=== PATIENT | female | born 1980 | race Caucasian/White ===

== ENCOUNTER 2019-10-21 08:47 | Emergency (ER) | payer OTHER ==
[~2019-10-21] VITALS: Ht 172.7 cm; Wt 136.5 kg
[2019-10-21 08:48] VITALS: BP 126/68
[2019-10-21] MEDS ORDERED: NAPR-837 PO (10:22)
--- NOTE | 2019-10-21 10:25 | REP ---
Left knee four views: There is no fracture or dislocation. There is no hemarthrosis. Mineralization is normal. There is mild tricompartment osteoarthritis. Electronically Signed by David Chacon MD 10/21/2019 10:17 A
== END 2019-10-21 10:35 | disposition home or self-care (01) ==
LOC: M ED 08:47
DX: S83.92XA Sprain of unspecified site of left knee, initial encounter (principal); W18.40XA Slipping, tripping and stumbling without falling, unspecified, initial encounter; Y92.099 Unspecified place in other non-institutional residence as the place of occurrence of the external cause; Y93.9 Activity, unspecified; Y99.9 Unspecified external cause status; F17.200 Nicotine dependence, unspecified, uncomplicated; Z88.5 Allergy status to narcotic agent; Z88.1 Allergy status to other antibiotic agents; Z88.8 Allergy status to other drugs, medicaments and biological substances

== ENCOUNTER 2019-12-23 09:24 | Emergency (ER) | payer OTHER ==
[~2019-12-23] VITALS: Ht 172.7 cm; Wt 125.9 kg
[~2019-12-23 09:24] MED LIST: NAPR-837 PO
[2019-12-23] MEDS ORDERED: KETOROLAC 30 MG/ML VIAL (J1885) IV ONE (09:45)
[2019-12-23 10:46] LABS: BASO % 0.4 % (0.0-1.0); EOS # 0.4 10^3/uL (0.0-0.5); EOS % 6.1 % (0.0-3.0); HEMATOCRIT 42.5 % (36.0-47.0); HEMOGLOBIN 13.8 g/dl (12.0-15.5); LYMPH # 1.4 10^3/uL (1.5-5.0); LYMPH % 20.7 % (24.0-44.0); MEAN CORPUSCULAR HEMOGLOBIN 29.3 pg (27.0-33.0); MEAN CORPUSCULAR HGB CONC 32.5 g/dl (32.0-36.5); MEAN CORPUSCULAR VOLUME 90.2 fl (80.0-96.0); MONO # 0.5 10^3/uL (0.0-0.8); MONO % 6.9 % (0.0-5.0); NEUTROPHILS # 4.4 10^3/uL (1.5-8.5); NEUTROPHILS % 65.6 % (36.0-66.0); PLATELET COUNT, AUTOMATED 215 10^3/uL (150-450); RED BLOOD COUNT 4.71 10^6/uL (4.00-5.40); WHITE BLOOD COUNT 6.7 10^3/uL (4.0-10.0)
[2019-12-23 11:18] LABS: ALBUMIN 3.4 GM/DL (3.2-5.2); BILIRUBIN,DIRECT 0.1 MG/DL (0.0-0.2); BILIRUBIN,TOTAL 0.5 MG/DL (0.2-1.0); TOTAL PROTEIN 7.2 GM/DL (6.4-8.2)
--- NOTE | 2019-12-23 11:21 | REP ---
REASON: Left-sided pain. History of tubal ligation and positive home test. Transvesical and transvaginal imaging was obtained. The uterus measures 8.9 x 5.5 x 8.6 cm. The endometrial echo complex measures 1.5 cm in thickness and is heterogenous with a somewhat demarcated measurable mixed echo structure within the endometrial cavity. There is a small amount of fluid seen in the endometrial cavity. Doppler of this structure shows no evidence of cardiac activity, however. There is no free fluid in the cul-de-sac. The right ovary measures 4.6 x 2.9 x 2 cm. Inferior to the right ovary, possibly exophytic to it, there is 2.2 x 2.1 x 1.4 cm sized complex area poorly demarcated by this exam. Right ovarian RI is 0.50. The left ovary measures 3.5 x 2.5 x 3.1 cm with an RI of 0.37. The left ovary is unremarkable. IMPRESSION: 1. There is no sonographic evidence of a living intrauterine gestation. Finding in the endometrial cavity, as described above, is of uncertain etiology and needs to be correlated clinically with close followup. 2. There is a complex structure seemingly inferior to the right ovary but poorly demarcated by this exam. There is no definite evidence of an ectopic , however, it cannot be ruled out by this exam. Clinical correlation and close followup is recommended. Electronically Signed by Seamus Szymanski DO 12/23/2019 11:53 A
[2019-12-23] MEDS ORDERED: ONDA4TAB6 PO (11:39)
[2019-12-23] MEDS ORDERED: KETO10TAB PO (11:39)
[2019-12-23 11:47] VITALS: BP 131/74
== END 2019-12-23 11:49 | disposition home or self-care (01) ==
LOC: M ED 09:24
DX: N93.8 Other specified abnormal uterine and vaginal bleeding (principal); R42 Dizziness and giddiness; Z32.02 Encounter for pregnancy test, result negative; E03.9 Hypothyroidism, unspecified; E66.9 Obesity, unspecified; Z87.59 Personal history of other complications of pregnancy, childbirth and the puerperium; Z98.51 Tubal ligation status; Z98.84 Bariatric surgery status; F17.200 Nicotine dependence, unspecified, uncomplicated; F12.10 Cannabis abuse, uncomplicated; Z88.1 Allergy status to other antibiotic agents; Z88.5 Allergy status to narcotic agent; Z88.8 Allergy status to other drugs, medicaments and biological substances
CPT/HCPCS: 76801; 76817; 80047; 80076; 84702; 85025; 86850; 86900; 86901; 93976; 96374; 99284; J1885

== ENCOUNTER 2019-12-25 10:30 | Emergency (ER) | payer OTHER ==
[~2019-12-25] VITALS: Ht 172.7 cm; Wt 127.8 kg
[~2019-12-25 10:30] MED LIST changes: +KETO10TAB PO; +ONDA4TAB6 PO
[2019-12-25 11:22] LABS: BASO % 0.4 % (0.0-1.0); EOS # 0.4 10^3/uL (0.0-0.5); EOS % 5.9 % (0.0-3.0); HEMOGLOBIN 13.5 g/dl (12.0-15.5); LYMPH # 1.5 10^3/uL (1.5-5.0); LYMPH % 20.9 % (24.0-44.0); MEAN CORPUSCULAR HEMOGLOBIN 29.2 pg (27.0-33.0); MEAN CORPUSCULAR HGB CONC 32.1 g/dl (32.0-36.5); MEAN CORPUSCULAR VOLUME 90.7 fl (80.0-96.0); MONO # 0.3 10^3/uL (0.0-0.8); MONO % 4.5 % (0.0-5.0); NEUTROPHILS # 4.7 10^3/uL (1.5-8.5); PLATELET COUNT, AUTOMATED 208 10^3/uL (150-450); RED BLOOD COUNT 4.63 10^6/uL (4.00-5.40)
[2019-12-25 11:37] LABS: BLOOD UREA NITROGEN 11 MG/DL (7-18); CALCIUM LEVEL 8.9 MG/DL (8.5-10.1); CARBON DIOXIDE LEVEL 27 MEQ/L (21-32); CHLORIDE LEVEL 112 MEQ/L (98-107); CREATININE FOR GFR 0.76 MG/DL (0.55-1.30); GLOMERULAR FILTRATION RATE > 60.0 (>58); GLUCOSE, FASTING 84 MG/DL (70-100); SODIUM LEVEL 141 MEQ/L (136-145)
[2019-12-25 11:43] LABS: APPEARANCE, URINE HAZY (CLEAR); BACTERIA, URINE AUTO NEGATIVE (NEGATIVE); BILIRUBIN, URINE AUTO NEGATIVE (NEGATIVE); BLOOD, URINE BLOOD 3+ (NEGATIVE); COLOR, URINE YELLOW (YELLOW); GLUCOSE, URINE (UA) AUTO NEGATIVE (NEGATIVE); KETONE, URINE AUTO NEGATIVE (NEGATIVE); LEUKOCYTE ESTERASE, URINE AUTO TRACE (NEGATIVE); MUCUS, URINE SMALL (NEGATIVE); NITRITE, URINE AUTO NEGATIVE (NEGATIVE); PROTEIN, URINE AUTO NEGATIVE (NEGATIVE); RBC, URINE AUTO 4 /HPF (0-3); SPECIFIC GRAVITY URINE AUTO 1.026 (1.002-1.035); SQUAMOUS EPITHELIAL CELL UR AU 8 /HPF (0-6); WBC, URINE AUTO 5 /HPF (0-3)
[2019-12-25 12:07] VITALS: BP 118/56
== END 2019-12-25 12:18 | disposition home or self-care (01) ==
LOC: M ED 10:30
DX: N93.8 Other specified abnormal uterine and vaginal bleeding (principal); E03.9 Hypothyroidism, unspecified; Z98.84 Bariatric surgery status; F17.200 Nicotine dependence, unspecified, uncomplicated; Z88.6 Allergy status to analgesic agent; Z88.1 Allergy status to other antibiotic agents; Z88.5 Allergy status to narcotic agent; Z88.8 Allergy status to other drugs, medicaments and biological substances

== ENCOUNTER 2020-09-01 12:15 | Emergency (ER) | payer OTHER ==
[~2020-09-01] VITALS: Ht 172.7 cm; Wt 115.8 kg
[2020-09-01 12:16] VITALS: BP 130/71
[2020-09-01] MEDS ORDERED: Xyzal PO (12:45)
[2020-09-01] MEDS ORDERED: ALBU8.5H (12:45)
== END 2020-09-01 13:15 | disposition left against medical advice (07) ==
LOC: M ED 12:15
DX: Z53.21 Procedure and treatment not carried out due to patient leaving prior to being seen by health care provider (principal)

== ENCOUNTER 2020-09-01 18:39 | Emergency (ER) | payer OTHER ==
[~2020-09-01] VITALS: Ht 172.7 cm; Wt 115.2 kg
[~2020-09-01 18:39] MED LIST changes: +ALBU8.5H; +Xyzal PO
[2020-09-01 19:38] LABS: BASO % 0.2 % (0.0-1.0); EOS # 0.3 10^3/uL (0.0-0.5); EOS % 3.5 % (0.0-3.0); HEMATOCRIT 34.8 % (36.0-47.0); HEMOGLOBIN 10.5 g/dl (12.0-15.5); LYMPH % 23.8 % (24.0-44.0); MEAN CORPUSCULAR HEMOGLOBIN 25.4 pg (27.0-33.0); MEAN CORPUSCULAR HGB CONC 30.2 g/dl (32.0-36.5); MEAN CORPUSCULAR VOLUME 84.1 fl (80.0-96.0); MONO # 0.4 10^3/uL (0.0-0.8); MONO % 4.3 % (0.0-5.0); NEUTROPHILS # 5.8 10^3/uL (1.5-8.5); NEUTROPHILS % 67.8 % (36.0-66.0); PLATELET COUNT, AUTOMATED 217 10^3/uL (150-450); RED BLOOD COUNT 4.14 10^6/uL (4.00-5.40); WHITE BLOOD COUNT 8.6 10^3/uL (4.0-10.0)
[2020-09-01 20:11] LABS: HCG, SERUM QUALITATIVE NEGATIVE (NEGATIVE)
[2020-09-01 20:17] LABS: ALBUMIN 3.1 GM/DL (3.2-5.2); ALT/SGPT 9 U/L (12-78); BILIRUBIN,DIRECT < 0.1 MG/DL (0.0-0.2); BILIRUBIN,TOTAL 0.2 MG/DL (0.2-1.0); BLOOD UREA NITROGEN 10 MG/DL (7-18); CALCIUM LEVEL 8.4 MG/DL (8.5-10.1); CARBON DIOXIDE LEVEL 25 MEQ/L (21-32); CHLORIDE LEVEL 110 MEQ/L (98-107); CK-MB VALUE MASS < 1.0 NG/ML (<3.6); CPK CREATINE PHOSPHOKINASE 61 U/L (26-192); CREATININE FOR GFR 0.73 MG/DL (0.55-1.30); GLOMERULAR FILTRATION RATE > 60.0 (>58); GLUCOSE, FASTING 83 MG/DL (70-100); LIPASE 180 U/L (73-393); MB/CK RELATIVE INDEX 1.64 (< OR =4); POTASSIUM SERUM 4.1 MEQ/L (3.5-5.1); SODIUM LEVEL 140 MEQ/L (136-145); TOTAL PROTEIN 6.2 GM/DL (6.4-8.2); TROPONIN I < 0.02 NG/ML (< 0.10)
--- NOTE | 2020-09-01 20:45 | REPVR ---
PROCEDURE INFORMATION: Exam: XR Complete Acute Abdomen Series Exam date and time: 09/01/2020 7:13 PM Age: 40 years old Clinical indication: Other: R/O free air; Additional info: Upper abdominal pain; R/O free air TECHNIQUE: Imaging protocol: XR complete acute abdomen series, including 2 or more views of the abdomen and a single view chest. COMPARISON: No relevant prior studies available. FINDINGS: Lungs: Normal. No consolidation. Pleural space: Normal. No pneumothorax. Heart/Mediastinum: Normal. No cardiomegaly. Gastrointestinal tract: Mildly prominent small bowel loops in the upper abdomen to the left of midline may indicate a localized ileus depending upon clinical evaluation. Intraperitoneal space: Normal. No free air. Bones/joints: Normal. No acute fracture. Soft tissues: Normal. IMPRESSION: 1. Mildly prominent small bowel loops in the upper abdomen to the left of midline may indicate a localized ileus depending upon clinical evaluation. 2. No free air demonstrated. Electronically signed by: Gus Trujillo On 09/01/2020 20:45:07 PM
--- NOTE | 2020-09-01 21:03 | ECGEPIP ---
[facility] - ED Test Date: 2020-09-01 Pat Name: COLBY HERNANDEZ Department: Room: - Gender: Female Translational Specialist: ISAEL : 1980 Requested By: NADIA SANCHEZ Order Number: [id number] Reading MD: Amita Montano Measurements Intervals [place] Rate: 50 P: 77 MT: 131 QRS: 29 QRSD: 98 T: 28 QT: 408 QTc: 373 Interpretive Statements SINUS BRADYCARDIA WITH SINUS ARRHYTHMIA NO PRIOR Electronically Signed on 09-01-2020 21:03:10 EST by Amita Montano
[2020-09-01] MEDS ORDERED: ISOVUE-370 76% 100ML VIAL As Ordered ONE (21:10)
[2020-09-01] MEDS ORDERED: GI COCKTAIL 50ML BTL(HYOSCYAMINE/MAALOX/LIDOCAINE VISCOUS)(1:3:1) PO ONE (21:15)
--- NOTE | 2020-09-01 21:58 | REPVR ---
PROCEDURE INFORMATION: Exam: CT Abdomen And Pelvis With Contrast Exam date and time: 09/01/2020 9:27 PM Age: 40 years old Clinical indication: Abdominal pain; Generalized; Additional info: Upper abdominal pain; R/O obstruction TECHNIQUE: Imaging protocol: Computed tomography of the abdomen and pelvis with intravenous contrast. Radiation optimization: All CT scans at this facility use at least one of these dose optimization techniques: automated exposure control; mA and/or kV adjustment per patient size (includes targeted exams where dose is matched to clinical indication); or iterative reconstruction. Contrast material: ISOVUE 370; Contrast volume: 100 ml; Contrast route: INTRAVENOUS (IV); COMPARISON: CR Abdomen,Flat Upright,PA CHEST 09/01/2020 8:17 PM FINDINGS: Liver: A normal appendix is seen adjacent to the liver and gallbladder fundus. Gallbladder and bile ducts: Normal. No calcified stones. No ductal dilation. Pancreas: Normal. No ductal dilation. Spleen: There is a large cyst the caudal tip of the spleen measuring 4.4 x 4.5 x 4.8 cm with a Hounsfield measurement of 9. The spleen measures 14.1 cm. Adrenal glands: Left adrenal nodule measuring 2.8 x 2.8 x 2.5 cm with a Hounsfield measurement of 50. Kidneys and ureters: Normal. No hydronephrosis. 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 Inverted cecum which is noted in the right upper quadrant. No diverticulosis or diverticulitis. No small bowel dilatation. Appendix: No evidence of appendicitis. Intraperitoneal space: Minimal free air within the abdomen noted within the corin hepatis and along the falciform ligament and anteriorly across the upper abdomen. Minimal free fluid in the abdomen and pelvis. A Alexey-en-Y is noted in the anterior left upper quadrant. Vasculature: There is minimal atherosclerotic calcification of the abdominal aorta. Lymph nodes: Unremarkable. No enlarged lymph nodes. Urinary bladder: Unremarkable as visualized. Reproductive: Tampon in position. Bones/joints: Unremarkable. No acute fracture. Soft tissues: Unremarkable. IMPRESSION: 1. Minimal free air and minimal free fluid consistent with perforated viscus of uncertain site. 2. There has been gastric bypass with left upper quadrant Alexey-en-Y. 3. Borderline splenomegaly with splenic cyst measuring up to 4.8 cm. 4. Left adrenal nodule measuring 2.8 x 2.8 x 2.[address] (Shukri Howard, ACR White Paper, 2017) 5. No evidence of bowel obstruction. Electronically signed by: Tyrel Jamil On 09/01/2020 21:58:05 PM
[2020-09-01 22:44] VITALS: BP 120/60
[2020-09-01] MEDS ORDERED: PANTOPRAZOLE 40MG VIAL (C9113 PER 1) IV ONE (22:45)
[2020-09-01] MEDS ORDERED: NS 1,000 ML IV ONE ×2 (23:45)
[2020-09-01] MEDS ORDERED: FLUCONAZOLE 400 MG in IV 1 EA IV ONE (23:45)
[2020-09-01] MEDS ORDERED: LR 1,000 ML IV ONE ×2 (23:45)
[2020-09-01] MEDS ORDERED: PIPERACILLIN/TAZOBACTAM SOD 3.375 GM in D5W MINI-BAG PLUS 50 ML IV ONE (23:45)
[2020-09-01] MEDS ORDERED: MULTIVITAMIN -ADULT INJECTION 10 ML, THIAMINE INJection 100 MG, FOLIC ACID 1 MG in NS 1... IV ONE (23:45)
== END 2020-09-02 01:53 | disposition short-term general hospital (02) ==
LOC: M ED 18:39
DX: R14.0 Abdominal distension (gaseous) (principal); R00.1 Bradycardia, unspecified; E03.9 Hypothyroidism, unspecified; E06.9 Thyroiditis, unspecified; Z98.84 Bariatric surgery status; F17.200 Nicotine dependence, unspecified, uncomplicated; Z88.6 Allergy status to analgesic agent; Z88.1 Allergy status to other antibiotic agents; Z88.5 Allergy status to narcotic agent; Z88.8 Allergy status to other drugs, medicaments and biological substances
CPT/HCPCS: 74021; 74177; 80048; 80076; 82550; 82553; 83690; 84703; 85025; 93005; 96365; 96374; 96375; 99284; C9113; J1450; J2543; J3411; Q9967

== ENCOUNTER → 2020-11-08 | Outpatient (CLI) | payer OTHER | LOC: M LABSMTC 13:45 | PROVIDERS: ATTEND Family Medicine | DX: Z20.822 Contact with and (suspected) exposure to COVID-19 (principal) | CPT/HCPCS: C9803; U0003 ==